=== PATIENT | male | born 2000 | race Hispanic/Latino ===

== ENCOUNTER 2021-04-17 13:10 | Outpatient (CLI) | payer OTHER | END 2021-04-17 13:11 | disposition home or self-care (01) | LOC: CSHCT 13:10 | PROVIDERS: ATTEND Orthopaedic Surgery | DX: Q66.89 Other specified congenital deformities of feet (principal); M89.8X7 Other specified disorders of bone, ankle and foot ==

== ENCOUNTER 2021-06-18 15:00 | Outpatient (CLI) | payer OTHER ==
[2021-06-19 14:45] LABS: SARS-CoV-2 PCR by NAA Not Detected (NotDetected)
== END 2021-06-18 15:01 | disposition home or self-care (01) ==
LOC: CSHLAB 15:00
PROVIDERS: ATTEND Orthopaedic Surgery
DX: Z20.822 Contact with and (suspected) exposure to COVID-19 (principal); M19.072 Primary osteoarthritis, left ankle and foot; Q66.89 Other specified congenital deformities of feet
CPT/HCPCS: U0003; U0005

== ENCOUNTER 2021-06-21 05:35 | Day surgery (SDC) | payer OTHER ==
[2021-06-15 08:45] VITALS: BMI 36.3
[2021-06-21] MEDS ORDERED: Lidocaine 2% PF 5 ML VIAL ONE (07:26)
[2021-06-21] MEDS ORDERED: Dexamethasone 4 mg/ml Vial ONE (07:26)
[2021-06-21] MEDS ORDERED: PROPOFOL 20 ML ONE ×2 (07:26→07:28)
[2021-06-21] MEDS ORDERED: Ondansetron PF 4 MG/2 ML Vial ONE (07:26)
[2021-06-21] MEDS ORDERED: Fentanyl 100 MCG/2 ML VIAL ONE ×3 (07:26→09:28)
[2021-06-21] MEDS ORDERED: Midazolam HCl 2 mg/2 ml Vial ONE (07:28)
[2021-06-21] MEDS ORDERED: ceFAZolin 2 GM/Dextrose 50 ML IVPB ONE (07:40)
[2021-06-21] MEDS ORDERED: Bupivacaine PF 0.5% 30 ML VIAL ONE (08:30)
[2021-06-21] MEDS ORDERED: HYDROmorphone 0.5 MG/0.5 ML SYRINGE ONE (08:44)
== END 2021-06-21 10:37 | disposition home or self-care (01) ==
LOC: CSHSDC 05:35
PROVIDERS: ATTEND Orthopaedic Surgery
PROC: 0QBM0ZZ Excision of Left Tarsal, Open Approach (ICD-10-PCS; principal; 2021-06-21)
DX: Q66.89 Other specified congenital deformities of feet (principal)
CPT/HCPCS: J0690; J1100; J1170; J2001; J2250; J2405; J2704; J3010; S0020